=== PATIENT | male | born 1970 | race Caucasian/White ===

== ENCOUNTER → 2024-03-22 06:48 | Outpatient (REF) | payer BC, SELFPAY | LOC: MRI 3T 06:48 | PROVIDERS: ATTENDING PHYSICIAN Physician Assistant; FAMILY PHYSICIAN Family Medicine | DX: M25.562 Pain in left knee (principal) | CPT/HCPCS: 73721 ==

== ENCOUNTER 2024-06-29 06:20 | Day surgery (SDC) | payer BC, SELFPAY ==
[2024-06-29] VITALS (9 sets, daily range): BP systolic 100–118; BP diastolic 63–80; BMI 27.0
[2024-06-29] MEDS: TYLENOL 1000 MG PO (13:09)
[2024-06-29] MEDS: CELEBREX 200 MG PO (13:09)
[2024-06-29] MEDS: ROXICODONE 5 MG PO (15:31)
== END 2024-06-29 15:40 | disposition home or self-care (01) ==
LOC: SDS 06:20
PROVIDERS: ATTENDING PHYSICIAN Orthopaedic Surgery
DX: S83.242A Other tear of medial meniscus, current injury, left knee, initial encounter (principal); X58.XXXA Exposure to other specified factors, initial encounter
CPT/HCPCS: 29881